=== PATIENT | female | born 1980 | race Caucasian/White ===

== ENCOUNTER 2016-11-22 20:42 | Inpatient (IN) | payer OTHER ==
[~2016-11-22] VITALS: Ht 160 cm; Wt 75.7 kg
[~2016-11-22 20:42] MED LIST: BUSP15TA70 PO; CYAN10005 PO; QUET1TAB32 PO; TOPI100T20 PO
[2016-11-22] MEDS ORDERED: SODIUM CHLORIDE 0.9% 1000ML 1,000 ML IV STA (21:22)
[2016-11-22] MEDS ORDERED: ACETAMINOPHEN IV 650 MG in EMPTY BAG 0 ML IV STA ×2 (21:22→21:43)
[2016-11-22] MEDS ORDERED: ZFRODT/8 SL (21:39)
[2016-11-22] MEDS ORDERED: CEPH500C2 PO (21:39)
[2016-11-22] MEDS ORDERED: BUPR8SUB19 PO (21:39)
[2016-11-22] MEDS ORDERED: CLINDAMYCIN 900 MG/106 ML D5W IV STA (21:43)
[2016-11-22 22:14] LABS: BASO % 0.1 %; BASO ABS # 0.01 K/uL (0-0.2); COMPLETE YES; EOS % 1.8 %; HEMATOCRIT 36.2 % (37-47); IG% 0.1 %; LYMPH % 20.3 %; LYMPH ABS # 1.99 K/uL (1.2-3.4); MEAN CELL VOLUME 87.4 fL (80-100); MEAN CORPUSCULAR HEMOGLOBIN 30.2 pg (25-34); MEAN CORPUSCULAR HGB CONC 34.5 g/dl (32-36); MEAN PLATELET VOLUME 10.2 fL (7.4-10.4); MONO % 5.5 %; NEUT % 72.2 %; PLATELET COUNT 178 K/uL (130-400); RED BLOOD COUNT 4.14 M/uL (4.2-5.4); WHITE BLOOD COUNT 9.79 K/uL (4.8-10.8)
[2016-11-22] MEDS ORDERED: CLINDAMYCIN IV 900 MG in DEXTROSE 5% ADD-VANTAGE 100ML 100 ML IV ONE (22:30)
[2016-11-22 22:31] LABS: BUN/CREATININE RATIO 19.8 (10-20); CALCIUM 8.7 mg/dl (8.5-10.1); CREATININE 0.5 mg/dl (0.60-1.20); POTASSIUM 3.4 mmol/L (3.5-5.1)
[2016-11-22 23:50] LABS: ALKALINE PHOSPHATASE 48 U/L (45-117); ALT/SGPT 12 U/L (12-78); AST/SGOT 13 U/L (15-37); MAGNESIUM 1.6 mg/dl (1.8-2.4)
[2016-11-23] MEDS ORDERED: MAGNESIUM SULFATE 1GM / D5W 1 GM in PREMIXED IN D5W 100 ML IV ONE (00:15)
[2016-11-23] MEDS ORDERED: MAGNESIUM SULFATE 1GM / D5W 1 GM BAG ONE (00:33)
[2016-11-23] MEDS ORDERED: HYDROmorphone INJ 0.5 MG/0.5 ML SYR ONE (00:34)
[2016-11-23 01:30] VITALS: BP 105/69; PULSE 88; TEMP 36.9; O2SAT 98; Ht 160 cm; Wt 75.7 kg
[2016-11-23] MEDS ORDERED: NSS + 20MEQ KCL 1000ML 1,000 ML IV SCH (02:00)
[2016-11-23] MEDS: ONDANSETRON INJ 2 MG/ML 2 ML VIAL IV SCH ×2 (02:41→14:39)
--- NOTE | 2016-11-23 03:40 | EMERGENCY ROOM VISIT NOTE ---
History First contact with patient: 21:10 Chief Complaint: WOUND INFECTION Stated Complaint: PERIANAL ABSCESS Nursing Triage Summary: pt has abscess on anus to glut fold pt has one starting on right labia pt saw pcp placed on Keflex, pt reports "no improvement" pt is 12 weeks no drainage hx of abscess 6 months ago History of Present Illness The patient is a 35 year old female who presents to the Emergency Room via private vehicle with complaints of "huge cyst/-8/2 weeks ". The patient states that she has experienced abscesses in the past in the perianal region of which had to be excised by a surgeon in the past. She states that most recently, noting a few weeks ago, she developed a small abscess in between the buttock near the anus. She states this has become painful and is worsened. She states that her family doctor, Dr. Pulliam prescribed her Keflex of which she started this past Friday. She states she has been taking it twice a day. She states that the pain is worsening therefore came in for evaluation. She also states she noticed a red painful bump on the right external labial region. She notes she is 12 weeks , and is been seeing [facility] CORE MACHINE TENDER in [place] but is being referred to high risk because she is 35 years old, and her last child resulted with retained placenta. She also notes that she smokes. Prior to coming here today she notes that she feels sweaty, and vomited which is new for her. She denies any chest pain, headache, shortness of breath, abdominal pain, vaginal bleeding or discharge. Review of Systems A complete 10-point Review of Systems was discussed with the patient, with pertinent positives and negatives listed in the History of Present Illness. All remaining Review of Systems questions can be considered negative unless otherwise specified. Past Medical/Surgical History Medical Problems: (1) Asthma, Unspecified (2) Bipolar disorder (3) [id number] (4) Perianal abscess Family History Diabetes mellitus FH: heart disease Kidney disease Social History Smoking Status: Current Every Day Smoker Alcohol Use: none, occasionally Marital Status: Housing Status: lives with family Occupation Status: unemployed Current/Historical Medications Scheduled Buprenorphine Hcl (Subutex), 4 MG PO DAILY Cephalexin Monohydrate (Keflex), 500 MG PO BID Scheduled PRN Ondansetron (Ondansetron Odt), 8 MG SL Q8 PRN for Nausea Allergies Coded Allergies: Morphine (Verified Allergy, Unknown, CHEST PAIN SOB, 11/22/16) Bupropion (Verified Adverse Reaction, Mild, NAUSEA, 11/22/16) Physical Exam Vital Signs Date Time Temp Pulse Resp B/P Pulse Ox O2 Delivery O2 Flow Rate FiO2 11/22/16 23:04 86 18 133/75 96 Room Air 11/22/16 20:49 36.8 109 20 116/87 96 Room Air Pain Rating (0-10): 8.0 Physical Exam VITAL SIGNS - Vital signs and nursing notes were reviewed. Afebrile, normotensive, tachycardic at a rate of 109 bpm, and is saturating well on room air 96%. GENERAL -35-year-old female appearing her stated age who is in no acute distress. Communicates well with provider and answers questions appropriately. SKIN - there is a palpable, 2 cm x 2 cm fluctuant mass on the left, 2 o'clock position from the location of the anus. This is roughly 4 cm from the anus. It does involve tissue of the anus, and appears to track towards the anus. There is exquisite tenderness to palpation of this region. There is also note of a small, raised 1 cm x 1 cm potential abscess in the right, labia majora region with overlying cellulitis. This does not appear to be in conjunction with the perianal abscess. HEAD - NC/AT. EYES - Sclera anicteric. Palpebral conjunctiva pink and moist with no injection noted. LUNGS - Chest wall symmetric without accessory muscle use, intercostals retractions, or central cyanosis. Normal vesicular breath sounds CTA B/L. No wheezes, rales, or rhonchi appreciated. CARDIAC - RRR with S1/S2. No murmur, rubs, or gallops appreciated. Medical Decision & Procedures Laboratory Results 11/22/16 21:45 Red Blood Count 4.14, Mean Corpuscular Volume 87.4, Mean Corpuscular Hemoglobin 30.2, Mean Corpuscular Hemoglobin Concent 34.5, Mean Platelet Volume 10.2, Neutrophils (%) (Auto) 72.2, Lymphocytes (%) (Auto) 20.3, Monocytes (%) (Auto) 5.5, Eosinophils (%) (Auto) 1.8, Basophils (%) (Auto) 0.1, Neutrophils # (Auto) 7.06, Lymphocytes # (Auto) 1.99, Monocytes # (Auto) 0.54, Eosinophils # (Auto) 0.18, Basophils # (Auto) 0.01 Test 11/22/16 21:45 11/22/16 21:56 White Blood Count 9.79 K/uL (4.8-10.8) Red Blood Count 4.14 M/uL (4.2-5.4) Hemoglobin 12.5 g/dL (12.0-16.0) Hematocrit 36.2 % (37-47) Mean Corpuscular Volume 87.4 fL (80-100) Mean Corpuscular Hemoglobin 30.2 pg (25-34) Mean Corpuscular Hemoglobin Concent 34.5 g/dl (32-36) Platelet Count 178 K/uL (130-400) Mean Platelet Volume 10.2 fL (7.4-10.4) Neutrophils (%) (Auto) 72.2 % Lymphocytes (%) (Auto) 20.3 % Monocytes (%) (Auto) 5.5 % Eosinophils (%) (Auto) 1.8 % Basophils (%) (Auto) 0.1 % Neutrophils # (Auto) 7.06 K/uL (1.4-6.5) Lymphocytes # (Auto) 1.99 K/uL (1.2-3.4) Monocytes # (Auto) 0.54 K/uL (0.11-0.59) Eosinophils # (Auto) 0.18 K/uL (0-0.5) Basophils # (Auto) 0.01 K/uL (0-0.2) RDW Standard Deviation 38.6 fL (36.4-46.3) RDW Coefficient of Variation 12.1 % (11.5-14.5) Immature Granulocyte % (Auto) 0.1 % Immature Granulocyte # (Auto) 0.01 K/uL (0.00-0.02) Est Creatinine Clear Calc Drug Dose 154.0 ml/min Total Bilirubin 0.2 mg/dl (0.2-1) Direct Bilirubin < 0.1 mg/dl (0-0.2) Aspartate Amino Transf (AST/SGOT) 13 U/L (15-37) Alanine Aminotransferase (ALT/SGPT) 12 U/L (12-78) Alkaline Phosphatase 48 U/L (45-117) Total Protein 6.6 gm/dl (6.4-8.2) Albumin 3.3 gm/dl (3.4-5.0) Thyroid Stimulating Hormone (TSH) 1.750 uIu/ml (0.300-4.500) Bedside Lactic Acid Venous 0.75 mmol/L (0.90-1.70) Medications Administered Medications (Trade) Dose Ordered Sig/Heena Route Start Time Stop Time Status Last Admin Dose Admin Sodium Chloride 1,000 ml @ 200 mls/hr Q5H STAT IV 11/22/16 21:22 11/23/16 01:45 DC 11/22/16 22:03 200 MLS/HR Acetaminophen 650 mg/Empty Bag 65 ml @ 260 mls/hr NOW STAT IV 11/22/16 21:43 11/22/16 21:57 DC 11/22/16 21:43 260 MLS/HR Clindamycin Phosphate/Dextrose (Cleocin Iv/ Dextrose Add-[place] 100ML) 106 ml @ 106 mls/hr 2230 ONCE IV 11/22/16 22:30 11/22/16 23:29 DC 11/22/16 22:19 106 MLS/HR Medical Decision Patient was seen and evaluated as above. After obtaining a thorough history and physical examination it was apparent the patient has failed on outpatient antibiotics, and has a perirectal abscess, with potential right labia majora abscess/cellulitis. IV access was initiated, and the above workup was initiated. The patient did request something for pain, as a morphine allergy and is therefore did consult pharmacy prior to administering medications. He was decided to provide the patient with IV Tylenol, as well as 900 mg of clindamycin. This is to treat the cellulitis and potential abscess. Due to the patient noting that she felt as if she was sweating, and developed new onset of vomiting and was tachycardic I did elect to obtain a point care lactic acid as well as blood culture in addition to the above labs. CBC reveals no leukocytosis at this time, but anemia is noted with a red blood cell count of 4.14. Hemoglobin is stable at 12.5. The PRP reveals a low potassium at 3.4, creatinine low at 0.5 and random glucose of 109. Otherwise unremarkable. I did not elect to obtain any imaging at this time as I did not want to radiate the patient with the developing fetus. I did discuss the case with my attending, and I do believe that the patient meets inpatient criteria. I discussed the case with the pressure control supervisor general surgeon, Dr. Birmingham at 11:06 PM. Due to the patient's underlying comorbidities, potential high school mathematics teacher, smoking, age, degree of infection we discussed that it would be appropriate to have the patient admitted to medicine to the hospital, with an OB consult prior to anesthesia, admission for IV antibiotics, pain control with potential drainage in the morning by Dr. Birmingham if cleared by anesthesia and OB. I do believe this is reasonable and thanked him for the call. I then discussed the case with the hospitalist, Dr. Lubin who agreed treatment the patient. He asked if I would call the on-call CORE MACHINE TENDER to alert them that Dr. Birmingham would like them to be involved with the case prior to surgical or anesthesia intervention. I then spoke with the on-call [facility] CORE MACHINE TENDER, Dr. Wells, who was made aware that Dr. Birmingham would like them to be involved with the case prior to surgery. I do believe that all this is reasonable, as the patient is a 12-1/2 weeks , is potentially consider high risk , smokes, has an infection that appears to be rapidly spreading, has failed outpatient antibiotics. She also may be experienced a systemic response to the infection, as she is tachycardic, has vomited and has been feeling chills with an infection that is rapidly progressing. Her lactic was not elevated, nonetheless blood cultures were ordered. The patient will be admitted for further evaluation and management. It is also important to note that in the order listed appears that there've been 2 clindamycin orders by myself, but I did speak with the in-house pharmacist and it was confirmed that only one dose was given per my order. Please refer to further documentation regarding the patient's stay. In the evaluation and treatment of this patient the following differential diagnoses were entertained: Perirectal abscess, cellulitis, sepsis, SIRS, high- risk , labial abscess, little cellulitis, among others. Impression Primary Impression: Perianal abscess Additional Impressions: Hypokalemia Cellulitis of labia majora Departure Information Dispostion Admitted as an inpatient Condition FAIR Referrals Mercy Pulliam M.D. (PCP) Forms WORK / SCHOOL INSTRUCTIONS, HOME CARE DOCUMENTATION FORM, IMPORTANT VISIT INFORMATION Patient Instructions [facility] Problem Qualifiers
[2016-11-23] MEDS: CLINDAMYCIN IV 600 MG in DEXTROSE 5% ADD-VANTAGE 50ML 50 ML IV SCH ×3 (05:38→21:58)
--- NOTE | 2016-11-23 05:44 | HISTORY & PHYSICAL EXAMINATION ---
DATE OF ADMISSION: 11/22/2016 PRIMARY CARE PHYSICIAN: Dr. Pulliam. Hx obtained from px and records. CHIEF COMPLAINT: perianal abscess. HISTORY OF PRESENT ILLNESS: Medical history significant for recurrent perirectal abscess, anal fistula status post surgery, mood/anxiety disorder, history of MRSA, chronic pain on Suboxone, ongoing tobacco abuse, history of substance abuse as per records, urolithiasis as per records. Patient currently at 12 wks AOG. Being followed by [facility] secondary to history of retained placenta, substance abuse. Recent confinement April, for fistula in ano under surgery service. Patient underwent fistulotomy by Dr. Krishnamurthy for persistent drainage perianal area. Patient subsequently had to follow up at the wound care center for nonhealing surgical wound in the perianal area. A month ago, the patient noted a small bump on her right perianal area extending to her R buttock, sudden enlargement the last week w/ increase in pain. No fever, no chills. Patient also noted a painful bump on her right vulva. No vaginal bleeding. Thinks it may be from shaving. Patient was given Keflex by PCP. No response. At the Emergency Room, px received IV Clindamycin for perianal abscess. MEDICAL HISTORY: As above. SURGERIES: She has had fistulectomy, gynecologic procedures. HOME MEDICATIONS: Subutex, Keflex, ondansetron. ALLERGIES: MORPHINE, BUPROPION. FAMILY HISTORY: Diabetes. Heart disease. PERSONAL AND SOCIAL HISTORY: Pack daily. No chronic intake of alcohol. armed forces . REVIEW OF SYSTEMS: As per HPI, all other ROS negative. PHYSICAL EXAMINATION: VITAL SIGNS: Blood pressure was noted to be 105/60, pulse rate 80, RR 18, temperature 36.9, sats 98 on room air. GENERAL: Noted to be anxious. Looks older for stated age, no respiratory distress. SKIN: Normal color. HEENT: [place] palpebral conjunctivae. Dry mucosa. NECK: No JVD. supple CHEST: Decreased breath sounds. Occasional wheeze. HEART: Regular rate and rhythm. ABDOMEN: Some distention, non-tender. RECTAL : tender induration R perianal area GENITOURINARY: tender nodule, R labial area NEUROLOGIC: No gross focality. LABS: Hemoglobin 12.5, WVC 9, platelets 158. Sodium 140, K 3.4, BUN 10, creatinine 1 ASSESSMENT: 1. Perianal abscess, right (hx perirectal abscess/fistula in ano as per records) Vulvar nodule, R (probably infectious) no sepsis failed outpatient treatment hx MRSA as per records 2. 12 wks AOG 3. hypokalemia 4. mood disorder, symptoms at baseline off meds 5. ongoing tobacco abuse 6, chronic pain on Suboxone hx substance addiction as per records PLAN: GMF Clindamycin. Surgery consult. Perianal abscess. ER provider already in touch with Dr. Birmingham (surgeon information technology account manager). PROFESSIONAL SERVICES MANAGER consult RE R vulvar mass, eval Replace potassium. Patient counseled about smoking cessation. Judicious narcotic use in light of substance abuse history. DVT prophylaxis, SCDs. Full code. MTDD
[2016-11-23 06:33] LABS: BLOOD UREA NITROGEN 6 mg/dl (7-18); CALCIUM 8.4 mg/dl (8.5-10.1); CARBON DIOXIDE 25 mmol/L (21-32); CHLORIDE 106 mmol/L (98-107); CREATININE 0.38 mg/dl (0.60-1.20); GLUCOSE 83 mg/dl (70-99); POTASSIUM 3.5 mmol/L (3.5-5.1); SODIUM 139 mmol/L (136-145)
[2016-11-23 07:32] VITALS: BP 90/59; PULSE 83; TEMP 36.8; O2SAT 96
[2016-11-23] MEDS: ACETAMINOPHEN/CODEINE 300/30MG TAB PO PRN ×2 (07:54→15:57)
[2016-11-23] MEDS ORDERED: CLINDAMYCIN CONSULT ACTIVE PRN ×2 (09:00)
[2016-11-23] MEDS ORDERED: BUPRENORPHINE HCL 2 MG SUBL SL SCH ×2 (09:00)
[2016-11-23] MEDS ORDERED: NURSING VERBAL MED ORDER ONE ×2 (10:00→12:30)
--- NOTE | 2016-11-23 10:28 | Surgery Consultation ---
Consultation Date of Consultation: Nov 23, 2016. Attending Physician: Chas Kulkarni MD History of Present Illness 35 y/o 12 weeks of gestation started having rectal pressure early this week. was started on out-pt keflex and symptoms worsened. went to er last night and has moderated sized perirectal abcess. she does have a hx of prior anal fissure opened this past year by Dr. Krishnamurthy...that all resolved and was on the opposite buttock according to her. she also noted some right labial redness/ swelling starting just last night. Past Medical/Surgical History Medical Problems: (1) Cellulitis of labia majora Status: Acute (2) Hypokalemia Status: Acute (3) Perirectal abscess Status: Acute Family History Diabetes mellitus FH: heart disease Kidney disease Social History Smoking Status: Current Every Day Smoker Marital Status: Housing Status: lives with family Occupation Status: unemployed Allergies Coded Allergies: Morphine (Verified Allergy, Unknown, CHEST PAIN SOB, 11/22/16) Bupropion (Verified Adverse Reaction, Mild, NAUSEA, 11/22/16) Home Medications Scheduled Buprenorphine Hcl (Subutex), 4 MG PO DAILY Cephalexin Monohydrate (Keflex), 500 MG PO BID Scheduled PRN Ondansetron (Ondansetron Odt), 8 MG SL Q8 PRN for Nausea Current Inpatient Medications Current Inpatient Medications Medications (Trade) Dose Ordered Sig/Heena Route Start Time Stop Time Status Last Admin Dose Admin Acetaminophen (Tylenol Tab) 650 mg Q4H PRN PO 11/23/16 00:15 12/23/16 00:14 Clindamycin Phosphate (Consult) 1 ea UD PRN N/A 11/23/16 09:00 12/23/16 08:59 Acetaminophen/ Codeine Phosphate (Tylenol w/ Codeine #3 Tab) 1 tab Q4H PRN PO 11/23/16 00:15 12/23/16 00:14 11/23/16 07:54 1 TAB Hydromorphone HCl 0.5 mg 0.5 mg Q6H PRN IV 11/23/16 00:15 Potassium Chloride/Sodium Chloride (Nss + 20meq KCl 1000ml) 1,000 ml @ 60 mls/hr [id number] IV 11/23/16 02:00 12/23/16 01:59 11/23/16 02:41 60 MLS/HR Ondansetron HCl (Zofran Inj) 4 mg Q12H IV 11/23/16 02:00 11/24/16 01:59 11/23/16 02:41 4 MG Buprenorphine HCl 4 mg 4 mg DAILY SL 11/23/16 09:00 12/23/16 08:59 Future hold Clindamycin Phosphate/Dextrose (Cleocin Iv/ Dextrose Add-[place] 50ML) 54 ml @ 108 mls/hr Q8H IV 11/23/16 06:00 12/03/16 05:59 11/23/16 05:38 108 MLS/HR Buprenorphine HCl (Buprenorphine HCl) 4 mg DAILY SL 11/23/16 09:00 11/23/16 13:00 Miscellaneous Information (Nursing Verbal Med Order) 1 ea ONE ONCE N/A 11/23/16 10:00 11/23/16 10:01 UNV Physical Exam Date Time Temp Pulse Resp B/P Pulse Ox O2 Delivery O2 Flow Rate FiO2 11/23/16 07:32 36.8 83 16 90/59 96 Room Air 11/23/16 01:30 36.9 88 18 105/69 98 Room Air 11/23/16 00:47 82 18 124/82 98 Room Air 11/22/16 23:04 86 18 133/75 96 Room Air 11/22/16 20:49 36.8 109 20 116/87 96 Room Air General Appearance: + mild distress (uncomfortable) Head: normocephalic, atraumatic Eyes: EOMI, sclerae normal Neck: supple Respiratory/Chest: no respiratory distress, no accessory muscle use Abdomen/GI: non tender, soft, + pertinent finding (large perirectal abcess on right. visible/relatively superficial and appears unrelated to anus itself) Genitourinary - Female: + pertinent finding (erythema and swelling of labia. no acute abcess. mildly tender. ) Extremities/Musculoskelatal: normal inspection, no calf tenderness Neurologic/Psych: forestry worker II-XII nml as tested, alert, oriented x 3 Skin: normal color, warm/dry Laboratory Results Last 24 Hours Test 11/22/16 21:45 11/22/16 21:56 11/23/16 05:05 White Blood Count 9.79 K/uL Red Blood Count 4.14 M/uL Hemoglobin 12.5 g/dL Hematocrit 36.2 % Mean Corpuscular Volume 87.4 fL Mean Corpuscular Hemoglobin 30.2 pg Mean Corpuscular Hemoglobin Concent 34.5 g/dl Platelet Count 178 K/uL Mean Platelet Volume 10.2 fL Neutrophils (%) (Auto) 72.2 % Lymphocytes (%) (Auto) 20.3 % Monocytes (%) (Auto) 5.5 % Eosinophils (%) (Auto) 1.8 % Basophils (%) (Auto) 0.1 % Neutrophils # (Auto) 7.06 K/uL Lymphocytes # (Auto) 1.99 K/uL Monocytes # (Auto) 0.54 K/uL Eosinophils # (Auto) 0.18 K/uL Basophils # (Auto) 0.01 K/uL RDW Standard Deviation 38.6 fL RDW Coefficient of Variation 12.1 % Immature Granulocyte % (Auto) 0.1 % Immature Granulocyte # (Auto) 0.01 K/uL Sodium Level 136 mmol/L 139 mmol/L Potassium Level 3.4 mmol/L 3.5 mmol/L Chloride Level 103 mmol/L 106 mmol/L Carbon Dioxide Level 25 mmol/L 25 mmol/L Anion Gap 8.0 mmol/L 8.0 mmol/L Blood Urea Nitrogen 10 mg/dl 6 mg/dl Creatinine 0.50 mg/dl 0.38 mg/dl Est Creatinine Clear Calc Drug Dose 154.0 ml/min 203.2 ml/min Estimated GFR () 146.4 > 150.0 Estimated GFR (Non- 126.3 138.2 BUN/Creatinine Ratio 19.8 15.0 Random Glucose 109 mg/dl 83 mg/dl Calcium Level 8.7 mg/dl 8.4 mg/dl Magnesium Level 1.6 mg/dl 2.0 mg/dl Total Bilirubin 0.2 mg/dl Direct Bilirubin < 0.1 mg/dl Aspartate Amino Transf (AST/SGOT) 13 U/L Alanine Aminotransferase (ALT/SGPT) 12 U/L Alkaline Phosphatase 48 U/L Total Protein 6.6 gm/dl Albumin 3.3 gm/dl Thyroid Stimulating Hormone (TSH) 1.750 uIu/ml Bedside Lactic Acid Venous 0.75 mmol/L Assessment & Plan 1. perirectal abcess 2. cellulitis of labia 3. 4. tobacco use b/c of will perform I & D at bedside today cont IV antibiotics at this time nothing to drain from labia....IV antibiotics will hopefully resolve this smoking cessation counseling discussed options/risks. pt agreeable to bedside I & D
[2016-11-23] MEDS ORDERED: LIDOCAINE HCL 1% 20 ML VIAL INFIL SCH (10:30)
[2016-11-23 10:37] VITALS: BP 103/63; PULSE 73
[2016-11-23] MEDS: HYDROmorphone INJ 0.5 MG/0.5 ML SYR IV PRN ×2 (10:55→19:44)
--- NOTE | 2016-11-23 11:51 | [facility] Operative Report ---
Operative Report Operative Date Nov 23, 2016. Pre-Operative Diagnosis cordell rectal abcess Post-Operative Diagnosis same Procedure(s) Performed incision/drainage of cordell recta abcess Findings foul smelling pus after I & D. Anesthesia 1 % lidocaine Complication(s) None Disposition I attest to the content of the Intraoperative Record and any orders documented therein. Any exceptions are noted below.
--- NOTE | 2016-11-23 12:14 | OPERATIVE REPORT ---
DATE OF OPERATION: 11/23/2016 PREOPERATIVE DIAGNOSIS: Perirectal abscess. POSTOPERATIVE DIAGNOSIS: Same. PROCEDURE PERFORMED: Incision and drainage with culture of perirectal abscess. SURGEON: Dr. Birmingham. GALVANIZER ZINC: I was assisted by the patient's nurse, I do not recall her name at the time, dayshift nurse. ESTIMATED BLOOD LOSS: Approximately 10 mL. COMPLICATIONS: No immediate. ANESTHESIA: 1% lidocaine. DESCRIPTION OF PROCEDURE: After informed consent was obtained, the patient was placed in right lateral decubitus position with the buttocks spread apart. The visible abscess was prepped with Betadine prep. The skin was injected with 1% lidocaine. I then used an 11 blade scalpel to make a linear incision directly over the abscess. We immediately obtained a foul smelling purulent drainage. I used a culture tip to perform fluid culture. I then used cotton tip applicator to probe the abscess cavity. We were able to use manual pressure to get a moderate amount of foul-smelling pus out of the abscess. I then irrigated with sterile irrigant. We used 1 inch plain packing to pack the wound and a sterile dressing was applied. The patient tolerated the procedure well. I attest to the content of the Intraoperative Record and any orders documented therein. Any exceptio ns are noted below.
--- NOTE | 2016-11-23 14:11 | Progress Note ---
Internal Med Progress Note Date of Service: Nov 23, 2016. Provider Documentation: SUBJECTIVE: resting comfortably afebrile says pain is somewhat better s/p I and D of perianal abscess at bedside by surgery OBJECTIVE: Vital Signs-as noted below Exam: General-alert and oriented. Not in distress ENT-normal hearing Neck-no neck masses Lungs-cta b/l occasional wheezing present no crackles Heart-s1 and s2 heard, regular rate and rhythm no murmurs Abdomen-soft bowel sounds present Extremities-no edema no erythema Neuro-alert and awake moves extremities Lab data as noted below. ASSESSMENT & PLAN: 1. Perianal abscess, right (hx fistula in ano as per records) Vulvar mass/induration R failed outpatient treatment hx MRSA as per records on iv clindamycin s/p I and D of perianal abscess by surgery will f/u cx. 2. 12 wks AOG OBGYN consulted. 3. hypokalemia will replace. 4. mood disorder, symptoms at baseline off meds. 5. ongoing tobacco abuse counselling. 6, chronic pain on Suboxone hx substance addiction as per records DVT PROPHYLAXIS scds DISPOSITION to be determined Vital Signs: Date Time Temp Pulse Resp B/P Pulse Ox O2 Delivery O2 Flow Rate FiO2 11/23/16 10:37 73 103/63 11/23/16 08:00 Room Air 11/23/16 07:32 36.8 83 16 90/59 96 Room Air 11/23/16 01:30 36.9 88 18 105/69 98 Room Air 11/23/16 00:47 82 18 124/82 98 Room Air 11/22/16 23:04 86 18 133/75 96 Room Air 11/22/16 20:49 36.8 109 20 116/87 96 Room Air Lab Results: Results Past 24 Hours Test 11/22/16 21:45 11/22/16 21:56 11/23/16 05:05 Range/Units White Blood Count 9.79 4.8-10.8 K/uL Red Blood Count 4.14 4.2-5.4 M/uL Hemoglobin 12.5 12.0-16.0 g/dL Hematocrit 36.2 37-47 % Mean Corpuscular Volume 87.4 80-100 fL Mean Corpuscular Hemoglobin 30.2 25-34 pg Mean Corpuscular Hemoglobin Concent 34.5 32-36 g/dl Platelet Count 178 130-400 K/uL Mean Platelet Volume 10.2 7.4-10.4 fL Neutrophils (%) (Auto) 72.2 % Lymphocytes (%) (Auto) 20.3 % Monocytes (%) (Auto) 5.5 % Eosinophils (%) (Auto) 1.8 % Basophils (%) (Auto) 0.1 % Neutrophils # (Auto) 7.06 1.4-6.5 K/uL Lymphocytes # (Auto) 1.99 1.2-3.4 K/uL Monocytes # (Auto) 0.54 0.11-0.59 K/uL Eosinophils # (Auto) 0.18 0-0.5 K/uL Basophils # (Auto) 0.01 0-0.2 K/uL RDW Standard Deviation 38.6 36.4-46.3 fL RDW Coefficient of Variation 12.1 11.5-14.5 % Immature Granulocyte % (Auto) 0.1 % Immature Granulocyte # (Auto) 0.01 0.00-0.02 K/uL Sodium Level 136 139 136-145 mmol/L Potassium Level 3.4 3.5 3.5-5.1 mmol/L Chloride Level 103 106 98-107 mmol/L Carbon Dioxide Level 25 25 21-32 mmol/L Anion Gap 8.0 8.0 3-11 mmol/L Blood Urea Nitrogen 10 6 7-18 mg/dl Creatinine 0.50 0.38 0.60-1.20 mg/dl Est Creatinine Clear Calc Drug Dose 154.0 203.2 ml/min Estimated GFR () 146.4 > 150.0 Estimated GFR (Non- 126.3 138.2 BUN/Creatinine Ratio 19.8 15.0 10-20 Random Glucose 109 83 70-99 mg/dl Calcium Level 8.7 8.4 8.5-10.1 mg/dl Magnesium Level 1.6 2.0 1.8-2.4 mg/dl Total Bilirubin 0.2 0.2-1 mg/dl Direct Bilirubin < 0.1 0-0.2 mg/dl Aspartate Amino Transf (AST/SGOT) 13 15-37 U/L Alanine Aminotransferase (ALT/SGPT) 12 12-78 U/L Alkaline Phosphatase 48 45-117 U/L Total Protein 6.6 6.4-8.2 gm/dl Albumin 3.3 3.4-5.0 gm/dl Thyroid Stimulating Hormone (TSH) 1.750 0.300-4.500 uIu/ml Bedside Lactic Acid Venous 0.75 0.90-1.70 mmol/L Microbiology Results 11/22/16 Blood Culture, Received Pending 11/22/16 Blood Culture, Received Pending 11/23/16 Gram Stain, Received Pending 11/23/16 Bacterial Culture, Received Pending
[2016-11-23] MEDS: ACETAMINOPHEN 325 MG TAB PO PRN ×2 (15:57→22:31)
[2016-11-23 16:00] VITALS: BP 89/56; PULSE 83; TEMP 36.7; O2SAT 99
[2016-11-23 19:02] VITALS: BP 107/66
[2016-11-23 23:30] VITALS: BP 93/61; PULSE 85; TEMP 37; O2SAT 97
[2016-11-24] MEDS: CLINDAMYCIN IV 600 MG in DEXTROSE 5% ADD-VANTAGE 50ML 50 ML IV SCH (06:28)
[2016-11-24 07:56] VITALS: BP 72/46; PULSE 67; TEMP 36.8; O2SAT 97
[2016-11-24 08:55] LABS: HEMATOCRIT 34.8 % (37-47); MEAN CELL VOLUME 86.1 fL (80-100); MEAN CORPUSCULAR HGB CONC 34.8 g/dl (32-36); MEAN PLATELET VOLUME 9.7 fL (7.4-10.4); PLATELET COUNT 175 K/uL (130-400); RED BLOOD COUNT 4.04 M/uL (4.2-5.4); WHITE BLOOD COUNT 6.27 K/uL (4.8-10.8)
--- NOTE | 2016-11-24 09:10 | Surgery Progress Note ---
Surgery Progress Note Date of Service Nov 24, 2016. Subjective Post OP Day: 1 pain in rectum improved but still sore ( expected).... still having some pain on labia. no new complaints. Objective Vital Signs: Date Time Temp Pulse Resp B/P Pulse Ox O2 Delivery O2 Flow Rate FiO2 11/24/16 07:56 36.8 67 16 72/46 97 Room Air 11/23/16 23:30 37.0 85 93/61 97 Room Air 11/23/16 19:15 Room Air 11/23/16 19:02 107/66 11/23/16 16:07 Room Air 11/23/16 16:00 36.7 83 16 89/56 99 Room Air 11/23/16 10:37 73 103/63 General Appearance: no apparent distress Head: normocephalic Abdomen: non tender, soft, + pertinent finding (abcess dramatically improved. packing in place. small amount purulent drainage. erythema/swelling much improved. labial cellulitis looks unchanged from yesterday. no true abcess yet. may develop into one at some point) Incision(s): drainage Laboratory Results: Results Past 24 Hours Test 11/24/16 08:40 Range/Units White Blood Count 6.27 4.8-10.8 K/uL Red Blood Count 4.04 4.2-5.4 M/uL Hemoglobin 12.1 12.0-16.0 g/dL Hematocrit 34.8 37-47 % Mean Corpuscular Volume 86.1 80-100 fL Mean Corpuscular Hemoglobin 30.0 25-34 pg Mean Corpuscular Hemoglobin Concent 34.8 32-36 g/dl Platelet Count 175 130-400 K/uL Mean Platelet Volume 9.7 7.4-10.4 fL RDW Standard Deviation 37.6 36.4-46.3 fL RDW Coefficient of Variation 12.0 11.5-14.5 % Microbiology Results 11/23/16 Gram Stain, Received Pending 11/23/16 Bacterial Culture, Received Pending Assessment & Plan 1. cordell-rectal abcess much improved. will need home nurses for packing changes at d/c cont antibiotics 2. labial cellulitis cont antibiotics. if develops into abcess would need drained as well
[2016-11-24] MEDS ORDERED: ONDANSETRON INJ 2 MG/ML 2 ML VIAL IV PRN (09:30)
[2016-11-24 09:37] LABS: BASO % 0.3 %; BASO ABS # 0.02 K/uL (0-0.2); COMPLETE YES; EOS % 2.4 %; IG% 0.2 %; LYMPH % 32.5 %; LYMPH ABS # 2.04 K/uL (1.2-3.4); MONO % 6.5 %; NEUT % 58.1 %
[2016-11-24] MEDS: ACETAMINOPHEN/CODEINE 300/30MG TAB PO PRN (09:37)
[2016-11-24] MEDS: ACETAMINOPHEN 325 MG TAB PO PRN (09:38)
[2016-11-24 10:55] VITALS: BP 113/54; PULSE 91; O2SAT 99
[2016-11-24] MEDS: HYDROmorphone INJ 0.5 MG/0.5 ML SYR IV PRN (11:19)
[2016-11-24] MEDS ORDERED: CLIN300C10 PO (11:47)
[2016-11-24] MEDS ORDERED: LCTX PO (11:47)
[2016-11-24] MEDS ORDERED: CEPH500C2 PO (11:47)
--- NOTE | 2016-11-24 11:49 | Discharge Instructions ---
Discharge Instructions Date of Service Nov 24, 2016. Admission Reason for Admission: Perianal Abscess Discharge Discharge Diagnosis / Problem: perianal abscess, labial cellulitis Discharge Goals Goal(s): Decrease discomfort, Improve function Activity Recommendations Activity Limitations: resume your previous activity . Instructions / Follow-Up Instructions / Follow-Up FOLLOWUP WITH CERTIFIED NURSING ASSISTANT INSTRUCTOR SCHEDULED TOMORROW [facility]. PACKING CHANGES PERIANAL ABSCESS I AND D SITE BY HOME HEALTH NURSES. Current Hospital Diet Patient's current hospital diet: Regular Diet Discharge Diet Recommended Diet: Regular Diet Pending Studies Studies pending at discharge: no Medical Emergencies . Who to Call and When: Medical Emergencies: If at any time you feel your situation is an emergency, please call 911 immediately. . Non-Emergent Contact Non-Emergency issues call your: Primary Care Provider . . "Provider Documentation" section prepared by Chas Kulkarni. VTE Core Measure Inpt VTE Proph given/why not?: SCD's
[2016-11-24 12:43] VITALS: BP 113/54; PULSE 91; TEMP 36.8; O2SAT 99
--- NOTE | 2016-11-24 19:26 | Progress Note ---
Internal Med Progress Note Date of Service: Nov 24, 2016. Provider Documentation: SUBJECTIVE: resting comfortably feeling fine non pain says her labial erythema improving want to be discharged OBJECTIVE: Vital Signs-as noted below Exam: General-alert and oriented. Not in distress ENT-normal hearing Neck-no neck masses Lungs-cta b/l occasional wheezing present no crackles Heart-s1 and s2 heard, regular rate and rhythm no murmurs Abdomen-soft bowel sounds present labial erythema seen Extremities-no edema no erythema Neuro-alert and awake moves extremities Lab data as noted below. ASSESSMENT & PLAN: 1. Perianal abscess, right (hx fistula in ano as per records) Vulvar mass/induration R failed outpatient treatment hx MRSA as per records on iv clindamycin s/p I and D of perianal abscess by surgery cx no growth so far d/ricardo on po clindamycin and Keflex f/u with pcp 2. 12 wks AOG OBGYN consulted. f/u with [facility] 3. hypokalemia will replace. 4. mood disorder, symptoms at baseline off meds. 5. ongoing tobacco abuse counselling. 6, chronic pain on Suboxone hx substance addiction as per records Discharged home Vital Signs: Date Time Temp Pulse Resp B/P Pulse Ox O2 Delivery O2 Flow Rate FiO2 11/24/16 12:43 36.8 91 16 99 Room Air 11/24/16 10:55 91 16 113/54 99 Room Air 11/24/16 07:56 36.8 67 16 72/46 97 Room Air 11/23/16 23:30 37.0 85 93/61 97 Room Air Lab Results: Results Past 24 Hours Test 11/24/16 08:40 Range/Units White Blood Count 6.27 4.8-10.8 K/uL Red Blood Count 4.04 4.2-5.4 M/uL Hemoglobin 12.1 12.0-16.0 g/dL Hematocrit 34.8 37-47 % Mean Corpuscular Volume 86.1 80-100 fL Mean Corpuscular Hemoglobin 30.0 25-34 pg Mean Corpuscular Hemoglobin Concent 34.8 32-36 g/dl Platelet Count 175 130-400 K/uL Mean Platelet Volume 9.7 7.4-10.4 fL Neutrophils (%) (Auto) 58.1 % Lymphocytes (%) (Auto) 32.5 % Monocytes (%) (Auto) 6.5 % Eosinophils (%) (Auto) 2.4 % Basophils (%) (Auto) 0.3 % Neutrophils # (Auto) 3.64 1.4-6.5 K/uL Lymphocytes # (Auto) 2.04 1.2-3.4 K/uL Monocytes # (Auto) 0.41 0.11-0.59 K/uL Eosinophils # (Auto) 0.15 0-0.5 K/uL Basophils # (Auto) 0.02 0-0.2 K/uL RDW Standard Deviation 37.6 36.4-46.3 fL RDW Coefficient of Variation 12.0 11.5-14.5 % Immature Granulocyte % (Auto) 0.2 % Immature Granulocyte # (Auto) 0.01 0.00-0.02 K/uL Red Blood Cell Morphology Unremarkable
--- NOTE | 2016-11-24 19:58 | Discharge Summary ---
Discharge Summary Date of Service Nov 24, 2016. Discharge Summary Admission Date: Nov 22, 2016 at 23:42 Discharge Date: Nov 24, 2016 Discharge Disposition: Home Principal Diagnosis: PERIANAL ABSCESS LABIAL CELLULITIS Secondary Diagnoses/Problems: recurrent perirectal abscess, anal fistula status post surgery, mood/anxiety disorder, history of MRSA, chronic pain on Suboxone Procedures: S/P I AND D OF PERIANAL ABSCESS Consultations: SURGERY Medication Reconciliation New Medications: Clindamycin Hcl (Clindamycin Hcl) 300 Mg Cap 600 MG PO TID for 7 Days Lactobacillus Acidophilus (Lactinex) Tab 4 TAB PO TID for 10 Days, TAB Changed Medications: Cephalexin Monohydrate (Keflex) 500 Mg Cap 500 MG PO TID for 7 Days, #21 CAP (Changed from: BID) Continued Medications: Buprenorphine Hcl (Subutex) 8 Mg Sub 4 MG PO DAILY, #60 Ondansetron (Ondansetron Odt) 8 Mg Soltab 8 MG SL Q8 PRN for Nausea, #60 Admission Information HPI (per Admitting provider): Medical history significant for recurrent perirectal abscess, anal fistula status post surgery, mood/anxiety disorder, history of MRSA, chronic pain on Suboxone, ongoing tobacco abuse, history of substance abuse as per records, urolithiasis as per records. Patient currently at 12 wks AOG. [place] [facility] [place] [facility] [facility] secondary to history of retained placenta, substance abuse. Recent confinement April, for fistula in ano under surgery service. Patient underwent fistulotomy by Dr. Krishnamurthy for persistent drainage perianal area. Patient subsequently had to follow up at the wound care center for nonhealing surgical wound in the perianal area. A month ago, the patient noted a small bump on her right perianal area extending to her R buttock, sudden enlargement the last week w/ increase in pain. No fever, no chills. Patient also noted a painful bump on her right vulva. No vaginal bleeding. Thinks it may be from shaving. Patient was given Keflex by PCP. No response. At the Emergency Room, px received IV Clindamycin for perianal abscess Physical Exam (per Admitting): VITAL SIGNS: Blood pressure was noted to be 105/60, pulse rate 80, RR 18, temperature 36.9, sats 98 on room air. GENERAL: Noted to be anxious. Looks older for stated age, no respiratory distress. SKIN: Normal color. HEENT: Colby palpebral conjunctivae. Dry mucosa. NECK: No JVD. supple CHEST: Decreased breath sounds. Occasional wheeze. HEART: Regular rate and rhythm. ABDOMEN: Some distention, non-tender. RECTAL : tender induration R perianal area GENITOURINARY: tender nodule, R labial area NEUROLOGIC: No gross focality. Hospital Course 1. Perianal abscess, right (hx fistula in ano as per records) Vulvar mass/induration R failed outpatient treatment hx MRSA as per records on iv clindamycin s/p I and D of perianal abscess by surgery cx no growth so far d/ricardo on po clindamycin and Keflex f/u with pcp 2. 12 wks AOG OBGYN consulted. f/u with [facility] 3. hypokalemia will replace. 4. mood disorder, symptoms at baseline off meds. 5. ongoing tobacco abuse counselling. 6, chronic pain on Suboxone hx substance addiction as per records Discharged home Total time spent on discharge = 35MINUTES This includes examination of the patient, discharge planning, medication reconciliation, and communication with other providers. Discharge Instructions Discharge Instructions Date of Service Nov 24, 2016. Admission Reason for Admission: Perianal Abscess Discharge Discharge Diagnosis / Problem: perianal abscess, labial cellulitis Discharge Goals Goal(s): Decrease discomfort, Improve function Activity Recommendations Activity Limitations: resume your previous activity . Instructions / Follow-Up Instructions / Follow-Up FOLLOWUP WITH [facility] SCHEDULED TOMORROW [facility]. PACKING CHANGES PERIANAL ABSCESS I AND D SITE BY HOME HEALTH NURSES. Current Hospital Diet Patient's current hospital diet: Regular Diet Discharge Diet Recommended Diet: Regular Diet Pending Studies Studies pending at discharge: no Medical Emergencies . Who to Call and When: Medical Emergencies: If at any time you feel your situation is an emergency, please call 911 immediately. . Non-Emergent Contact Non-Emergency issues call your: Primary Care Provider . . "Provider Documentation" section prepared by Chas Kulkarni.
--- NOTE | 2016-11-28 13:36 | CONSULTATION REPORT ---
DATE OF CONSULTATION: 11/22/2016 REASON FOR CONSULTATION: Perirectal abscess and . HISTORY OF PRESENT ILLNESS: The patient is a 35-year-old female who presents to the ER, she has perirectal abscess. She is 12 weeks . She was seen and evaluated by general surgery and they are planning to take her to the operating room for an I\T\D of an abscess. She currently is and she has not been seen yet for this . She is on Suboxone and is being followed in [place] for her past pregnancies. The hospitalist, Dr. Mayo talked with me and I informed him that she was okay to go to the OR for general surgery to have this abscess taken care of. The patient will be seen on followup in the office for her care.
== END 2016-11-24 13:17 | disposition home or self-care (01) | DRG 781 ==
LOC: ENRESERVTM → ENRESERVDT → C.EDB 20:43 → C.3E 23:42
PROVIDERS: ADMIT Internal Medicine; ATTEND Internal Medicine
PROC: 0D9P3ZZ Drainage of Rectum, Percutaneous Approach (ICD-10-PCS; principal; 2016-11-23)
DX: O26.891 Other specified pregnancy related conditions, first trimester (principal); K61.1 Rectal abscess; O99.341 Other mental disorders complicating pregnancy, first trimester; O99.351 Diseases of the nervous system complicating pregnancy, first trimester; O99.611 Diseases of the digestive system complicating pregnancy, first trimester; O99.281 Endocrine, nutritional and metabolic diseases complicating pregnancy, first trimester; O99.511 Diseases of the respiratory system complicating pregnancy, first trimester; O99.331 Smoking (tobacco) complicating pregnancy, first trimester; O23.591 Infection of other part of genital tract in pregnancy, first trimester; F41.9 Anxiety disorder, unspecified; G89.29 Other chronic pain; F17.200 Nicotine dependence, unspecified, uncomplicated; E87.6 Hypokalemia; J45.909 Unspecified asthma, uncomplicated; Z83.3 Family history of diabetes mellitus; Z82.49 Family history of ischemic heart disease and other diseases of the circulatory system; Z86.14 Personal history of Methicillin resistant Staphylococcus aureus infection; Z79.899 Other long term (current) drug therapy; Z3A.12 12 weeks gestation of pregnancy; F39 Unspecified mood [affective] disorder

== ENCOUNTER 2018-04-27 17:19 | Emergency (ER) | payer OTHER ==
[~2018-04-27] VITALS: Ht 160 cm; Wt 63.6 kg
[~2018-04-27 17:19] MED LIST changes: +BUPR8SUB19 PO; -BUSP15TA70 PO; +CEPH500C2 PO; +CLIN300C10 PO; -CYAN10005 PO; -QUET1TAB32 PO; -TOPI100T20 PO; +ZFRODT/8 SL
[2018-04-27 17:26] VITALS: TEMP 36.7; Ht 160 cm; Wt 63.6 kg
--- NOTE | 2018-04-27 18:01 | EMERGENCY ROOM VISIT NOTE ---
History Report prepared by Hany: Rima Haynes Under the Supervision of: Dr. Laith Antoine M.D. First contact with patient: 17:41 Chief Complaint: MENTAL HEALTH EVALUATION Stated Complaint: DEPRESSION History of Present Illness The patient is a 37 year old female who presents to the Emergency Room with complaints of persistent teresa and depression beginning a couple months ago. She notes she gets manic and hears people talking the distance. The patient mentions she does not feel the voices are speaking to her or telling her to do anything. She states she has been wanting to hurt herself the past couple weeks , and locked herself in the bathroom with pills, but did not take them because she has 2 children. She notes she currently takes Trazodone, Subutex, and Cymbalta. The patient reports she called [facility], but no beds were available until tomorrow. She states she called her drug & alcohol counselor, and her chief knowledge officer called her an ambulance to the ED. The patient states she wants to get this "taken care of" and denies any thoughts of harming others. The patient notes she is eating and drinking as usual and does not have any physical pain. She reports a history of rehab and psychiatric admissions. The patient sees Dr. Tiffany Minor as her PCP. Source of History: patient Onset: couple months ago Position: other (psych) Quality: other (teresa, depression) Timing: other (persistent) Note: Associated symptom: suicidal ideations. Denies: homicidal ideations, physical pain Review of Systems See HPI for pertinent positives and negatives. A total of ten systems were reviewed and were otherwise negative. Past Medical & Surgical Medical Problems: (1) Asthma, Unspecified (2) Bipolar disorder (3) Adaxihu-ae-guj (4) Perianal abscess Family History Diabetes mellitus FH: heart disease Kidney disease Social History Smoking Status: Current Every Day Smoker Alcohol Use: none, occasionally Marital Status: Housing Status: lives with family Occupation Status: unemployed Current/Historical Medications Scheduled Buprenorphine Hcl (Subutex), 8 MG PO DAILY/UD Duloxetine HCl (Cymbalta), Unknown Dose PO DAILY Sumatriptan Succinate (Imitrex), 25 MG PO PRN/UD Trazodone Hcl (Trazodone), 50 MG PO HS Allergies Coded Allergies: Morphine (Verified Allergy, Unknown, CHEST PAIN SOB, 11/22/16) Bupropion (Verified Adverse Reaction, Mild, NAUSEA, 11/22/16) Physical Exam Vital Signs Date Time Temp Pulse Resp B/P (MAP) Pulse Ox O2 Delivery O2 Flow Rate FiO2 04/27/18 23:32 78 16 92/50 99 Room Air 04/27/18 20:16 73 20 98/63 97 Room Air 04/27/18 17:26 36.7 87 18 119/78 100 Room Air Physical Exam GENERAL: Awake, alert laying on bed HENT: Normocephalic, atraumatic. Oropharynx unremarkable. EYES: Normal conjunctiva. Sclera non-icteric. NECK: Supple. No nuchal rigidity. RESPIRATORY: Clear to auscultation. Normal respiratory effort. CARDIAC: Normal rate. Normal rhythm. Extremities warm and well perfused. GI: Soft, non-distended. No tenderness to palpation. No rebound or guarding. RECTAL: Deferred. MUSCULOSKELETAL: Atraumatic. Chest examination reveals no tenderness LOWER EXTREMITIES: Calves are equal size bilaterally and non-tender. No edema NEURO: Normal sensorium. No sensory or motor deficits noted. No facial droop. SKIN: Warm and dry. No rash or jaundice noted. PSYCH: Endorses SI, denies HI, endorses hallucination but not responding to external stimuli, intact fund of knowledge, flat affect Medical Decision & Procedures Laboratory Results 04/27/18 18:10 Red Blood Count 4.30, Mean Corpuscular Volume 90.0, Mean Corpuscular Hemoglobin 29.8, Mean Corpuscular Hemoglobin Concent 33.1, Mean Platelet Volume 10.3, Neutrophils (%) (Auto) 67.9, Lymphocytes (%) (Auto) 21.8, Monocytes (%) (Auto) 6.6, Eosinophils (%) (Auto) 3.3, Basophils (%) (Auto) 0.3, Neutrophils # (Auto) 4.92, Lymphocytes # (Auto) 1.58, Monocytes # (Auto) 0.48, Eosinophils # (Auto) 0.24, Basophils # (Auto) 0.02 04/27/18 18:10 Test 04/27/18 17:35 04/27/18 18:08 04/27/18 18:10 04/27/18 18:11 Urine Color YELLOW Urine Appearance CLEAR (CLEAR) Urine pH 6.5 (4.5-7.5) Urine Specific [place] 1.024 (1.000-1.030) Urine Protein 1+ (NEG) Urine Glucose (UA) NEG (NEG) Urine Ketones NEG (NEG) Urine Occult Blood NEG (NEG) Urine Nitrite NEG (NEG) Urine Bilirubin NEG (NEG) Urine Urobilinogen NEG (NEG) Urine Leukocyte Esterase NEG (NEG) Urine WBC (Auto) 1-5 /hpf (0-5) Urine RBC (Auto) 0-4 /hpf (0-4) Urine Hyaline Casts (Auto) 1-5 /lpf (0-5) Urine Epithelial Cells (Auto) >30 /lpf (0-5) Urine Bacteria (Auto) NEG (NEG) Urine Opiates Screen NEG (NEG) Urine Methadone, Qualitative NEG (NEG) Urine Barbiturates NEG (NEG) Urine Phencyclidine (PCP) Level NEG (NEG) Ur Amphetamine/Methamphetamine NEG (NEG) MDMA (Ecstasy) Screen POS (NEG) Urine Benzodiazepines Screen NEG (NEG) Urine Cocaine Metabolite POS (NEG) Urine Marijuana (THC) NEG (NEG) Bedside Glucose 136 mg/dl (70-90) White Blood Count 7.25 K/uL (4.8-10.8) Red Blood Count 4.30 M/uL (4.2-5.4) Hemoglobin 12.8 g/dL (12.0-16.0) Hematocrit 38.7 % (37-47) Mean Corpuscular Volume 90.0 fL (80-100) Mean Corpuscular Hemoglobin 29.8 pg (25-34) Mean Corpuscular Hemoglobin Concent 33.1 g/dl (32-36) Platelet Count 225 K/uL (130-400) Mean Platelet Volume 10.3 fL (7.4-10.4) Neutrophils (%) (Auto) 67.9 % Lymphocytes (%) (Auto) 21.8 % Monocytes (%) (Auto) 6.6 % Eosinophils (%) (Auto) 3.3 % Basophils (%) (Auto) 0.3 % Neutrophils # (Auto) 4.92 K/uL (1.4-6.5) Lymphocytes # (Auto) 1.58 K/uL (1.2-3.4) Monocytes # (Auto) 0.48 K/uL (0.11-0.59) Eosinophils # (Auto) 0.24 K/uL (0-0.5) Basophils # (Auto) 0.02 K/uL (0-0.2) RDW Standard Deviation 39.5 fL (36.4-46.3) RDW Coefficient of Variation 12.2 % (11.5-14.5) Immature Granulocyte % (Auto) 0.1 % Immature Granulocyte # (Auto) 0.01 K/uL (0.00-0.02) Anion Gap 7.0 mmol/L (3-11) Est Creatinine Clear Calc Drug Dose 101.2 ml/min Estimated GFR () 129.8 Estimated GFR (Non- 112.0 BUN/Creatinine Ratio 22.0 (10-20) Calcium Level 8.1 mg/dl (8.5-10.1) Total Bilirubin 0.2 mg/dl (0.2-1) Direct Bilirubin < 0.1 mg/dl (0-0.2) Aspartate Amino Transf (AST/SGOT) 12 U/L (15-37) Alanine Aminotransferase (ALT/SGPT) 12 U/L (12-78) Alkaline Phosphatase 50 U/L (45-117) Total Protein 6.8 gm/dl (6.4-8.2) Albumin 3.5 gm/dl (3.4-5.0) Thyroid Stimulating Hormone (TSH) 0.480 uIu/ml (0.300-4.500) Salicylates Level 3.1 mg/dl (2.8-20) Acetaminophen Level < 2 ug/ml (10-30) Ethyl Alcohol mg/dL < 3.0 mg/dl (0-3) Human Chorionic Gonadotropin, Qual NEG (NEG) Laboratory results reviewed by me Medications Administered Medications (Trade) Dose Ordered Sig/Heena Route Start Time Stop Time Status Last Admin Dose Admin Ondansetron HCl (Zofran Odt) 4 mg NOW STAT PO 04/28/18 00:00 04/28/18 00:02 DC 04/28/18 00:05 4 MG ED Course 1748: The patient was evaluated in room A8. A complete history and physical exam was performed. 1950: Inpatient psych referrals were sent. 4: The bed search was suspended for the evening. 5: Ordered Desryl Tab 50 mg PO. 0000: Ordered Subutex 8 mg SL, Zofran Odt 4 mg PO. 0030: The patient was signed out to Dr. Bella at the change of shift. Medical Decision Differential diagnosis: Etiologies such as mood disorder, infection, hypoglycemia, electrolyte abnormalities, cardiac sources, intracerebral event, toxicologic, neurologic, as well as others were entertained. Patient presents today complaining of depression and mood disorder. States that she feels manic and hearing voices. Having thoughts of wanting to harm herself. States several days ago she almost overdosed on pills but her thoughts of family prevented her. States she has been manic for several months. States previous inpatient hospitalizations. Denies HI. Basic laboratory studies were completed. No acute general medical complaints were noted. Feel that she requires inpatient psychiatric care given her active suicidal ideation. Psychiatric liaison nurse to assist with evaluation. Medically clear for inpatient psychiatric care. Bed search in progress. Suspended for the night and patient declined wanting to search further field and the [place] or [place] area. Will resume in the morning. Signed out to my colleague with plan to restart bed search in morning. She is voluntary at this time. Home meds ordered. Medication Reconcilliation Current Medication List: was personally reviewed by me Blood Pressure Screening Patient's blood pressure: Normal blood pressure Blood pressure disposition: Did not require urgent referral Impression Primary Impression: Suicidal ideation Scribe Attestation The scribe's documentation has been prepared under my direction and personally reviewed by me in its entirety. I confirm that the note above accurately reflects all work, treatment, procedures, and medical decision making performed by me. Departure Information Dispostion Still a Patient Referrals Mercy Pulliam M.D. (PCP) Patient Instructions [facility]
[2018-04-27 18:29] LABS: BASO % 0.3 %; BASO ABS # 0.02 K/uL (0-0.2); EOS % 3.3 %; EOS ABS # 0.24 K/uL (0-0.5); HEMATOCRIT 38.7 % (37-47); HEMOGLOBIN 12.8 g/dL (12.0-16.0); IG# 0.01 K/uL (0.00-0.02); LYMPH % 21.8 %; LYMPH ABS # 1.58 K/uL (1.2-3.4); MEAN CORPUSCULAR HEMOGLOBIN 29.8 pg (25-34); MEAN CORPUSCULAR HGB CONC 33.1 g/dl (32-36); MEAN PLATELET VOLUME 10.3 fL (7.4-10.4); MONO % 6.6 %; MONO ABS # 0.48 K/uL (0.11-0.59); NEUT % 67.9 %; NEUT ABS # 4.92 K/uL (1.4-6.5); PLATELET COUNT 225 K/uL (130-400); RED CELL DISTRIBUTION WIDTH CV 12.2 % (11.5-14.5); RED CELL DISTRIBUTION WIDTH SD 39.5 fL (36.4-46.3); WHITE BLOOD COUNT 7.25 K/uL (4.8-10.8)
[2018-04-27] MEDS ORDERED: TRAZ50TA35 PO (18:50)
[2018-04-27] MEDS ORDERED: CYM/30 PO (18:51)
[2018-04-27] MEDS ORDERED: SUMA25TA12 PO (18:52)
[2018-04-27 18:56] LABS: ALBUMIN 3.5 gm/dl (3.4-5.0); ALKALINE PHOSPHATASE 50 U/L (45-117); ALT/SGPT 12 U/L (12-78); AST/SGOT 12 U/L (15-37); BLOOD UREA NITROGEN 15 mg/dl (7-18); CALCIUM 8.1 mg/dl (8.5-10.1); CARBON DIOXIDE 29 mmol/L (21-32); CREATININE 0.69 mg/dl (0.60-1.20); GLUCOSE 116 mg/dl (70-99); POTASSIUM 3.5 mmol/L (3.5-5.1); SODIUM 138 mmol/L (136-145); TOTAL PROTEIN 6.8 gm/dl (6.4-8.2)
[2018-04-27] MEDS ORDERED: TRAZODONE HCL 50 MG TAB PO SCH (23:45)
[2018-04-28] MEDS ORDERED: BUPRENORPHINE HCL 8 MG SUBL SL ONE
[2018-04-28] MEDS ORDERED: ONDANSETRON 4MG OD TAB PO STA
[2018-04-28] MEDS ORDERED: ONDANSETRON 4MG OD TAB ONE (00:02)
[2018-04-28] MEDS ORDERED: SODIUM CHLORIDE 0.9% 1000ML 1,000 ML IV STA (01:47)
[2018-04-28] MEDS ORDERED: ONDANSETRON INJ 2 MG/ML 2 ML VIAL IV STA (01:47)
[2018-04-28] MEDS ORDERED: RANITIDINE HCL 50 MG/100 ML D5W IV STA (01:47)
[2018-04-28 02:18] LABS: LIPASE 117 U/L (73-393)
--- NOTE | 2018-04-28 04:23 | EMERGENCY ROOM VISIT NOTE ---
ED Visit Note First contact with patient: 01:32 This case was signed out to me at change of shift awaiting bed placement. The bed search was suspended. The patient is resting comfortably at this time. Her morning medications have been ordered. 0140:Patient is now complaining of some abdominal pain and vomited. She has a history of ulcers. She states that she will intermittently get episodes of epigastric abdominal pain especially when she is stressed. I examined the patient at this time. She is pale, diaphoretic and tachycardic. She has moderate tenderness to palpation in the epigastrium. Vital signs are stable. Nursing staff will establish an IV lock and administer IV normal saline solution, IV Zofran, and IV Zantac. We will draw lipase at this time. LFTs from earlier this evening were normal. Lipase was normal. Patient felt much better after the above medications. In fact, she was able to eat and drink without difficulty. 0420: She is sleeping at this time. The bed search will resume in the morning. The case will be signed out to Dr. Flores at change of shift in the morning. The bed search will resume.
--- NOTE | 2018-04-28 06:58 | EMERGENCY ROOM VISIT NOTE ---
ED Visit Note Received patient in sign out, History and physical verified by me. Pt voluntary. Pt is unhappy she did not receive her Subutex or Cymbalta in a timely manner. It was ordered here in ED. Pt was accepted to the [facility].
[2018-04-28] MEDS ORDERED: BUPRENORPHINE HCL 8 MG SUBL SL STA (12:14)
[2018-04-28] MEDS ORDERED: DULOXETINE (CYMBALTA) 30 MG CAP PO STA (12:14)
[2018-04-28 12:59] VITALS: BP 106/64; PULSE 84; O2SAT 96
== END 2018-04-28 13:12 ==
LOC: C.EDB 17:21 → C.EDA 04-28 13:12
DX: R45.851 Suicidal ideations (principal); F31.9 Bipolar disorder, unspecified; J45.909 Unspecified asthma, uncomplicated; Z79.899 Other long term (current) drug therapy; Z88.5 Allergy status to narcotic agent; Z88.8 Allergy status to other drugs, medicaments and biological substances; F17.200 Nicotine dependence, unspecified, uncomplicated